=== PATIENT | female | born 1985 | race African-American/Black ===

== ENCOUNTER 2017-09-05 01:12 | Emergency (ER) | payer OTHER ==
[~2017-09-05] VITALS: Ht 162.6 cm; Wt 113.1 kg
[~2017-09-05 01:12] MED LIST: CIPRO500 MG PO; NAPROSYN500 MG PO; PYRIDIUM200 MG PO
[2017-09-05 01:30] LABS: HEMATOCRIT 39.3 % (36.0-46.0); MCH 27.3 PG (29.0-34.0); MCHC 32.8 G/DL (30.0-36.0); MCV 83.3 FL (83-99); MEAN PLAT.VOLUME 10.7 uM^3 (9.5-12.4); PLATELET COUNT 223 K/uL (156-360); RBC DIS.WIDTH-CV 12.8 % (11.8-14.6); RBC DIS.WIDTH-SD 39.1 % (39-53); RED BLOOD COUNT 4.72 M/uL (3.80-5.20); WHITE BLOOD COUNT 9.1 K/uL (4.1-10.2)
[2017-09-05 01:41] LABS: CHLORIDE 104 mEq/L (99-109); POTASSIUM 3.5 mEq/L (3.7-5.4); SODIUM 139 mEq/L (136-147)
[2017-09-05 01:43] LABS: GLUCOSE 107 mg/dL (70-99)
[2017-09-05 01:45] LABS: ANION GAP 9 MEQ/L (2-14); TOTAL BILIRUBIN 0.4 mg/dL (0.0-1.0)
[2017-09-05 01:47] LABS: ALKALINE PHOSPHATASE 41 IU/L (3-129); GFR ESTIMATE (CALCULATED) > 59 mL/min/
[2017-09-05 01:48] LABS: UREA NITROGEN (BUN) 11 mg/dL (9-23)
[2017-09-05 01:51] LABS: LIPASE 21 U/L (1.0-51.0)
[2017-09-05 02:01] LABS: QUANTITATIVE HCG < 4.0 MIU/ML
[2017-09-05] MEDS ORDERED: PERCOCET 5/31 TABLET PO (05:38)
[2017-09-05] MEDS ORDERED: ZOFRAN ODT4 MG PO (05:38)
[2017-09-05 05:45] LABS: ADD MIUA? YES; BILIRUBIN NEGATIVE; BLOOD NEGATIVE; COLOR YELLOW ((YELLOW)); GLUCOSE (STRIP) NEGATIVE; KETONES NEGATIVE; LEUKOCYTES NEGATIVE; NITRITE NEGATIVE; PROTEIN (STRIP) 30
[2017-09-05 06:16] VITALS: BP 136/68
[2017-09-05 06:24] LABS: BACTERIA RARE /HPF; EPITHELIAL CELLS 1+ /HPF; MUCUS 2+ /LPF; RED BLOOD CELLS 0-5 /HPF (0-5); UCUL ADDED? NO; WHITE BLOOD CELLS 0-5 /HPF (0-5)
== END 2017-09-05 06:17 | disposition home or self-care (01) ==
LOC: EXP 01:12 → EME 01:12 → EXP 06:17
DX: K80.70 Calculus of gallbladder and bile duct without cholecystitis without obstruction (principal); F17.200 Nicotine dependence, unspecified, uncomplicated
CPT/HCPCS: 76705; 80053; 81003; 83690; 84702; 85027; 99281; 99284

== ENCOUNTER 2017-09-18 09:35 | Day surgery (SDC) | payer OTHER ==
[~2017-09-18] VITALS: Ht 162.6 cm; Wt 108.4 kg
[~2017-09-18 09:35] MED LIST changes: +ERGOCALCIF50000 UNIT PO; +OMEPRAZOLE20 MG PO; +PERCOCET 5/31 TABLET PO; +ZOFRAN ODT4 MG PO
[2017-09-18 10:14] VITALS: BP 113/65
[2017-09-18] MEDS ORDERED: PERCOCET 5/31 TABLET PO (13:08)
[2017-09-18] MEDS ORDERED: COLACE100 MG PO (13:08)
[2017-09-18 14:45] VITALS: BP 124/75; BP 125/78
[2017-09-18 15:50] VITALS: BP 125/78
[2017-09-18 17:02] VITALS: BP 120/72
== END 2017-09-18 17:00 | disposition home or self-care (01) ==
LOC: SDC
PROC: 0FT44ZZ Resection of Gallbladder, Percutaneous Endoscopic Approach (ICD-10-PCS; principal; 2017-09-18)
DX: K80.10 Calculus of gallbladder with chronic cholecystitis without obstruction (principal); K21.9 Gastro-esophageal reflux disease without esophagitis; K58.9 Irritable bowel syndrome, unspecified; F17.200 Nicotine dependence, unspecified, uncomplicated; E66.9 Obesity, unspecified; Z68.41 Body mass index [BMI] 40.0-44.9, adult; E55.9 Vitamin D deficiency, unspecified; J32.9 Chronic sinusitis, unspecified; K59.09 Other constipation; Z82.49 Family history of ischemic heart disease and other diseases of the circulatory system; Z80.3 Family history of malignant neoplasm of breast; Z83.49 Family history of other endocrine, nutritional and metabolic diseases
CPT/HCPCS: 88304; J0131; J0330; J0690; J1100; J1170; J1885; J2405; J3010; Q0175

== ENCOUNTER 2017-09-19 23:42 | Emergency (ER) | payer OTHER ==
[~2017-09-19] VITALS: Ht 162.6 cm; Wt 115.7 kg
[~2017-09-19 23:42] MED LIST changes: +COLACE100 MG PO
[2017-09-20] MEDS ORDERED: PEPCID20 MG PO (03:03)
[2017-09-20] MEDS ORDERED: AUGMENTIN875 MG PO (03:03)
[2017-09-20 03:13] VITALS: BP 130/96
== END 2017-09-20 03:14 | disposition home or self-care (01) ==
LOC: EXP 23:42 → EME 23:42 → EXP 09-20 03:14
DX: T78.40XA Allergy, unspecified, initial encounter (principal); X58.XXXA Exposure to other specified factors, initial encounter; Z48.01 Encounter for change or removal of surgical wound dressing; Z90.49 Acquired absence of other specified parts of digestive tract; Z98.890 Other specified postprocedural states; F17.200 Nicotine dependence, unspecified, uncomplicated
CPT/HCPCS: 99281; 99284